=== PATIENT | male | born 1945 | race Caucasian/White ===

== ENCOUNTER → 2024-06-20 14:19 | Outpatient (BNVA) | payer MEDICARE, OTHER, SELFPAY | PROVIDERS: PCP Family Medicine; Referring Provider Family Medicine; Visit Provider Psychiatry & Neurology Neurology | DX: R26.89 Other abnormalities of gait and mobility (principal); R41.3 Other amnesia; M48.00 Spinal stenosis, site unspecified; R73.03 Prediabetes; R03.0 Elevated blood-pressure reading, without diagnosis of hypertension; Z86.711 Personal history of pulmonary embolism | CPT/HCPCS: 99205 ==

== ENCOUNTER → 2024-08-02 09:33 | Outpatient (BNVA) | payer MEDICARE, OTHER, SELFPAY | PROVIDERS: PCP Family Medicine; Referring Provider Family Medicine; Visit Provider Psychiatry & Neurology Neurology | DX: R26.89 Other abnormalities of gait and mobility (principal); R41.9 Unspecified symptoms and signs involving cognitive functions and awareness; M48.02 Spinal stenosis, cervical region; I62.00 Nontraumatic subdural hemorrhage, unspecified | CPT/HCPCS: 99215 ==